=== PATIENT | female | born 1940 | race Caucasian/White ===

== ENCOUNTER 2020-05-21 11:34 | Emergency (ER) | payer MEDICARE ==
[~2020-05-21] VITALS: Ht 160 cm; Wt 95.0 kg
[2020-05-21] MEDS ORDERED: HYDROmorphone 1 MG/ML, 1ML INJ IV ONE (12:00)
[2020-05-21] MEDS ORDERED: DEXAMETHASONE 4 MG/ML, 1ML IVPush ONE (12:00)
[2020-05-21] MEDS ORDERED: KETOROLAC 30 MG/1 ML IM/IV ONE (12:00)
[2020-05-21] MEDS ORDERED: ONDANSETRON 2MG/ML, 2ML IVPush ONE (12:00)
[2020-05-21] MEDS ORDERED: HYDROmorphone 1 MG/ML, 1ML INJ ONE (12:07)
[2020-05-21] MEDS ORDERED: KETOROLAC 30 MG/1 ML ONE (12:07)
[2020-05-21] MEDS ORDERED: ONDANSETRON 2MG/ML, 2ML ONE (12:11)
[2020-05-21] MEDS ORDERED: DEXAMETHASONE 4 MG/ML, 1ML ONE ×2 (12:11→12:21)
--- NOTE | 2020-05-21 12:22 | NUR ---
MEDICATED NOTED ON SEP FOR LEFT HIP PAIN FOR THE LAST SEVERAL DAYS. PAIN RADIATES DOWN LEG. DENIES TRAUMA BUT DID HAVE AN INJECTION LEFT HIP APPROX 10 DAYS AGO. ADDTIONALLY Rick Duncan HAS BE BEEN USING WALKER THE LAST FEW DAYS WHICH SHE DOES NOT NORMALLY DO BECAUSE OF THE PAIN
[2020-05-21 12:27] LABS: CHLORIDE 105 mmol/L (98-107)
[2020-05-21 12:30] LABS: BASOPHILS % (AUTO) 0 % (0-1); EOSINOPHILS % (AUTO) 0 % (1-7); LYMPHOCYTES % (AUTO) 10 % (22-44); MEAN CORPUSCULAR HEMOGLOBIN 32.5 pg (27.0-34.8); MEAN CORPUSCULAR HGB CONC 34.1 g/dL (32.4-35.8); MONOCYTES % (AUTO) 10 % (2-9); NEUTROPHILS % (AUTO) 80 % (42-75); PLATELET COUNT 209 x10^3/uL (130-400); RED BLOOD COUNT 4.07 x10^6/uL (3.82-5.3); RED CELL DISTRIBUTION WIDTH 13.8 % (9.6-15.2)
[2020-05-21 12:38] LABS: MD NO
[2020-05-21 12:55] LABS: ANION GAP 12 mmol/L (5-15); CALCIUM 8.8 mg/dL (8.5-10.1)
[2020-05-21 12:56] LABS: CREATININE 1.05 mg/dL (0.55-1.02)
--- NOTE | 2020-05-21 13:17 | NUR ---
BREAK RN: PT RESTING, REPOSITIONED FOR COMFORT, VERBALIZED NO OTHER NEEDS, STATES PAIN IS COMING BACK, REQUEST ADDITIONAL MEDS AT THIS TIME.
--- NOTE | 2020-05-21 14:50 | NUR ---
PT AMBULATED SHORT DISTANCE WITH SOME ASSISTANCE. HAS LEFT HIP PAIN BUT IT HAS IMPROVED SINCE MEDICATED.
[2020-05-21 14:51] VITALS: BP 105/52
[2020-05-21] MEDS ORDERED: OXYcodone/APAP 5/325MG TABLET ONE (15:11)
[2020-05-21] MEDS ORDERED: OXYcodone/APAP 5/325MG TABLET PO ONE (15:30)
== END 2020-05-21 15:20 | disposition home or self-care (01) ==
LOC: ED 13:58
DX: M54.42 Lumbago with sciatica, left side (principal); R43.9 Unspecified disturbances of smell and taste; I10 Essential (primary) hypertension; E11.9 Type 2 diabetes mellitus without complications; R26.2 Difficulty in walking, not elsewhere classified
CPT/HCPCS: 36415; 80048; 85025; 96374; 96375; 99284; J1100; J1170; J1885; J2405

== ENCOUNTER → 2020-10-24 | Outpatient (CLI) | payer MEDICARE | END | disposition home or self-care (01) | LOC: CFH 10:01 | PROVIDERS: ATTEND Physician Assistant | DX: M48.061 Spinal stenosis, lumbar region without neurogenic claudication (principal); M43.27 Fusion of spine, lumbosacral region; M25.78 Osteophyte, vertebrae | CPT/HCPCS: 72131 ==

== ENCOUNTER 2020-11-17 08:21 | Outpatient (CLI) | payer MEDICARE ==
[2020-11-17 08:41] LABS: BASOPHILS % (AUTO) 1 % (0-1); EOSINOPHILS % (AUTO) 4 % (1-7); LYMPHOCYTES % (AUTO) 34 % (22-44); MEAN CORPUSCULAR HEMOGLOBIN 31.7 pg (27.0-34.8); MEAN CORPUSCULAR HGB CONC 33.7 g/dL (32.4-35.8); MEAN PLATELET VOLUME 8.4 fL (7.4-10.4); MONOCYTES % (AUTO) 11 % (2-9); NEUTROPHILS % (AUTO) 50 % (42-75); PLATELET COUNT 214 x10^3/uL (130-400); RED BLOOD COUNT 4.15 x10^6/uL (3.82-5.3); RED CELL DISTRIBUTION WIDTH 12.9 % (9.6-15.2)
[2020-11-17 08:43] LABS: MD NO
[2020-11-17 08:50] LABS: ALANINE AMINOTRANSFERASE 28 U/L (12-78); ALBUMIN 3.6 g/dL (3.4-5.0); ANION GAP 5 mmol/L (5-15); CHLORIDE 107 mmol/L (98-107)
[2020-11-17 09:17] LABS: ALKALINE PHOSPHATASE 101 U/L (45-117); BILIRUBIN,TOTAL 0.6 mg/dL (0.2-1.0); CREATININE 1.11 mg/dL (0.55-1.02); FOLATE LEVEL 17.2 ng/mL (3.1-17.5)
[2020-12-30] MEDS ORDERED: METF1000 PO (09:19)
[2020-12-30] MEDS ORDERED: ATOR20TA37 PO (09:19)
[2020-12-30] MEDS ORDERED: water pill PO (09:19)
[2020-12-30] MEDS ORDERED: LOSA25TA25 PO (09:19)
== END 2020-11-17 23:59 | disposition home or self-care (01) ==
LOC: LAB 08:21
PROVIDERS: ATTEND Student in an Organized Health Care Education/Training Program
DX: I10 Essential (primary) hypertension (principal); R41.3 Other amnesia; E11.9 Type 2 diabetes mellitus without complications
CPT/HCPCS: 36415; 80053; 82306; 82607; 82746; 83036; 84443; 85025

== ENCOUNTER → 2020-12-30 | Outpatient (CLI) | payer MEDICARE ==
[~2020-12-30] MED LIST: ATOR20TA37 PO; LOSA25TA25 PO; METF1000 PO; water pill PO
[2020-12-30 09:44] LABS: MICROSCOPIC AUTO
[2020-12-30 09:53] LABS: INTERNATIONAL NORMALIZED RATIO 0.98 (0.93-1.1); PROTHROMBIN TIME 10.5 Seconds (9.6-11.5)
[2020-12-30 09:54] LABS: BASOPHILS % (AUTO) 1 % (0-1); EOSINOPHILS % (AUTO) 3 % (1-7); LYMPHOCYTES % (AUTO) 31 % (22-44); MEAN CORPUSCULAR HEMOGLOBIN 32.4 pg (27.0-34.8); MEAN CORPUSCULAR HGB CONC 34.2 g/dL (32.4-35.8); MEAN PLATELET VOLUME 9.1 fL (7.4-10.4); MONOCYTES % (AUTO) 11 % (2-9); NEUTROPHILS % (AUTO) 55 % (42-75); PLATELET COUNT 217 x10^3/uL (130-400); RED BLOOD COUNT 4.34 x10^6/uL (3.82-5.3); RED CELL DISTRIBUTION WIDTH 13.4 % (9.6-15.2)
[2020-12-30 09:55] LABS: MD NO
[2020-12-30 10:12] LABS: ALBUMIN 3.9 g/dL (3.4-5.0); ANION GAP 3 mmol/L (5-15); CHLORIDE 109 mmol/L (98-107)
[2020-12-30 10:15] LABS: ALANINE AMINOTRANSFERASE 20 U/L (12-78); ALKALINE PHOSPHATASE 79 U/L (45-117); BILIRUBIN,TOTAL 0.9 mg/dL (0.2-1.0); CREATININE 0.99 mg/dL (0.55-1.02); TOTAL PROTEIN 7.4 g/dL (6.4-8.2)
== END | disposition home or self-care (01) ==
LOC: STAR 08:32
PROVIDERS: ATTEND Neurological Surgery
DX: Z01.812 Encounter for preprocedural laboratory examination (principal); Z20.822 Contact with and (suspected) exposure to COVID-19; Z01.811 Encounter for preprocedural respiratory examination; Z01.818 Encounter for other preprocedural examination; Z01.810 Encounter for preprocedural cardiovascular examination; R79.1 Abnormal coagulation profile; R94.31 Abnormal electrocardiogram [ECG] [EKG]; R82.90 Unspecified abnormal findings in urine; M48.061 Spinal stenosis, lumbar region without neurogenic claudication; M54.16 Radiculopathy, lumbar region; I51.7 Cardiomegaly; R00.1 Bradycardia, unspecified
CPT/HCPCS: 36415; 71046; 80053; 81001; 85025; 85610; 85730; 87086; 93005; U0003; U0005

== ENCOUNTER 2021-01-05 07:47 | Observation (INO) | payer MEDICARE ==
[~2021-01-05] VITALS: Ht 157.5 cm; Wt 83.4 kg
[2021-01-05] MEDS ORDERED: HYDR25TA6 PO (08:17)
[2021-01-05] MEDS ORDERED: GABA600T7 PO (08:18)
[2021-01-05] MEDS ORDERED: CHLORHEXIDINE 15 ML UDC PO ONE (08:30)
[2021-01-05] MEDS ORDERED: LACTATED RINGERS 1,000 ML IV SCH (08:30)
[2021-01-05] MEDS ORDERED: FENTANYL PF 250 MCG/5ML ONE (09:45)
[2021-01-05] MEDS ORDERED: THROMBIN (RECOMBINANT) 5,000 UNIT VIAL TP ONE (09:48)
[2021-01-05] MEDS ORDERED: BUPIVACAINE/PF 0.25% ONE (09:48)
[2021-01-05] MEDS ORDERED: EPINEPHRINE 1 MG/ML, 1ML ONE (09:48)
[2021-01-05] MEDS ORDERED: BACITRACIN 50,000 UNIT ONE (09:48)
[2021-01-05] MEDS ORDERED: PROPOFOL 10 MG/ML, 20ML ONE ×2 (10:31→12:38)
[2021-01-05] MEDS ORDERED: PROPOFOL 100 ML ONE (10:31)
[2021-01-05] MEDS ORDERED: LABETALOL 5MG/ML, 20ML IV PRN (11:00)
[2021-01-05] MEDS ORDERED: ACETAMINOPHEN 325 MG TABLET PO PRN (11:00)
[2021-01-05] MEDS ORDERED: hydrALAzine 20 MG/ML, 1ML IV PRN (11:00)
[2021-01-05] MEDS ORDERED: HYDROmorphone 1 MG/ML, 1ML INJ IVPush PRN (11:00)
[2021-01-05] MEDS ORDERED: PROMETHAZINE 25 MG/ML, 1ML IVPush PRN (11:00)
[2021-01-05] MEDS ORDERED: METHOCARBAMOL 1,000 MG in DEXTROSE 5% 100 ML IV PRN (11:00)
[2021-01-05] MEDS ORDERED: PROMETHAZINE 25 MG SUPP PR PRN (11:00)
[2021-01-05] MEDS ORDERED: LORazepam 2 MG/ML, 1ML IVPush PRN (11:00)
[2021-01-05] MEDS ORDERED: OXYcodone 5 MG/5 ML ORAL.SOL UDC PO PRN (11:00)
[2021-01-05] MEDS ORDERED: ONDANSETRON 2MG/ML, 2ML IVPush PRN (11:00)
[2021-01-05] MEDS ORDERED: FENTANYL PF 100 MCG/2ML ONE (12:30)
[2021-01-05] MEDS ORDERED: ACETAMINOPHEN 650 MG/20.3 ML UDC ONE (12:31)
[2021-01-05] MEDS ORDERED: OXYcodone 5 MG/5 ML ORAL.SOL UDC ONE (12:31)
[2021-01-05] MEDS: FENTANYL PF 100 MCG/2ML IV PRN ×2 (12:34→13:09)
[2021-01-05] MEDS ORDERED: NEOSTIGMINE 1 MG/ML, 10ML ONE (12:38)
[2021-01-05] MEDS ORDERED: ROCURONIUM 10MG/ML,5ML ONE (12:38)
[2021-01-05] MEDS ORDERED: SUCCINYLCHOLINE 20 MG/ML, 10ML ONE (12:38)
[2021-01-05] MEDS ORDERED: GLYCOPYRROLATE 0.2MG/1ML, 5ML ONE (12:38)
[2021-01-05] MEDS ORDERED: DEXAMETHASONE 4 MG/ML, 1ML ONE (12:38)
[2021-01-05] MEDS ORDERED: CEFAZOLIN 1,000 MG ONE (12:38)
[2021-01-05] MEDS ORDERED: ONDANSETRON 2MG/ML, 2ML ONE (12:38)
[2021-01-05] MEDS ORDERED: KETOROLAC 30 MG/1 ML ONE (12:56)
[2021-01-05 14:34] VITALS: BP 96/64
[2021-01-05] MEDS ORDERED: morphine SULFATE 10 MG/ML, 1ML IV PRN (15:00)
[2021-01-05] MEDS ORDERED: MAGNESIUM HYDROXIDE 8%, 30ML UDC PO PRN (15:00)
[2021-01-05] MEDS ORDERED: PROMETHAZINE 25 MG/ML, 1ML IM PRN (15:00)
[2021-01-05] MEDS ORDERED: DIPHENHYDRAMINE 50 MG/ML, 1ML IM PRN (15:00)
[2021-01-05] MEDS ORDERED: HYDROcodone/APAP 5/325 TABLET PO PRN (15:00)
[2021-01-05] MEDS ORDERED: LORazepam 1MG TABLET PO PRN (15:00)
[2021-01-05] MEDS ORDERED: BISACODYL 10 MG SUPP PR PRN (15:00)
[2021-01-05] MEDS ORDERED: DIPHENHYDRAMINE 50 MG/ML, 1ML IVPush PRN (15:00)
[2021-01-05] MEDS ORDERED: DIPHENHYDRAMINE 25 MG CAPSULE PO PRN (15:00)
[2021-01-05] MEDS ORDERED: ONDANSETRON 2MG/ML, 2ML IV PRN (15:00)
[2021-01-05] MEDS ORDERED: morphine SULFATE 10 MG/ML, 1ML IVPush PRN (15:30)
[2021-01-05] MEDS: D5%-0.9% NACL+KCL 20MEQ 1,000 ML IV SCH (16:00)
[2021-01-05] MEDS: OXYcodone IR 5MG TABLET PO PRN (17:00)
[2021-01-05] MEDS: metFORMIN 500 MG TABLET PO SCH (17:00)
[2021-01-05] MEDS: INSULIN REGULAR 100 UNITS/ML, 3ML VIAL SQ-INSULIN SCH ×2 (17:01→20:37)
[2021-01-05] MEDS: CEFAZOLIN PMX 1GM/50ML 50 ML IVPB SCH (17:04)
[2021-01-05 19:59] VITALS: BP 105/70
[2021-01-05] MEDS: ATORVASTATIN 20 MG TABLET PO SCH (20:36)
[2021-01-05] MEDS: GABAPENTIN 400 MG CAPSULE PO SCH (20:36)
[2021-01-05] MEDS: TIZANIDINE 4MG TABLET PO PRN (22:06)
[2021-01-05 23:31] VITALS: BP 106/64
[2021-01-06] MEDS: OXYcodone IR 5MG TABLET PO PRN ×4 (00:56→21:24)
[2021-01-06] MEDS: D5%-0.9% NACL+KCL 20MEQ 1,000 ML IV SCH ×4 (01:00→19:09)
[2021-01-06] MEDS: CEFAZOLIN PMX 1GM/50ML 50 ML IVPB SCH (01:58)
[2021-01-06 03:55] VITALS: BP 106/55
[2021-01-06 05:23] LABS: BASOPHILS % (AUTO) 0 % (0-1); EOSINOPHILS % (AUTO) 0 % (1-7); LYMPHOCYTES % (AUTO) 19 % (22-44); MEAN CORPUSCULAR HEMOGLOBIN 32.6 pg (27.0-34.8); MEAN CORPUSCULAR HGB CONC 34.2 g/dL (32.4-35.8); MEAN PLATELET VOLUME 9.4 fL (7.4-10.4); MONOCYTES % (AUTO) 9 % (2-9); NEUTROPHILS % (AUTO) 72 % (42-75); PLATELET COUNT 169 x10^3/uL (130-400); RED CELL DISTRIBUTION WIDTH 13.5 % (9.6-15.2)
[2021-01-06 05:33] LABS: ANION GAP 7 mmol/L (5-15); CALCIUM 8.3 mg/dL (8.5-10.1); CHLORIDE 108 mmol/L (98-107); CREATININE 0.88 mg/dL (0.55-1.02)
[2021-01-06] MEDS: INSULIN REGULAR 100 UNITS/ML, 3ML VIAL SQ-INSULIN SCH ×4 (07:00→21:00)
[2021-01-06 07:10] VITALS: BP 94/60
[2021-01-06] MEDS: SENNA/DOCUSATE TABLET PO SCH (08:21)
[2021-01-06] MEDS: metFORMIN 500 MG TABLET PO SCH ×2 (08:21→16:43)
[2021-01-06] MEDS: GABAPENTIN 400 MG CAPSULE PO SCH ×2 (08:21→21:05)
[2021-01-06] MEDS: HYDROCHLOROTHIAZIDE 25 MG TABLET PO SCH (08:21)
[2021-01-06] MEDS: LOSARTAN 25MG TABLET PO SCH (08:32)
[2021-01-06] MEDS: ENOXAPARIN 40 MG/0.4 ML SQ SCH (12:11)
[2021-01-06 12:45] VITALS: BP 100/65
[2021-01-06 19:01] VITALS: BP 124/77
[2021-01-06] MEDS: ATORVASTATIN 20 MG TABLET PO SCH (21:05)
[2021-01-07 03:55] VITALS: BP 102/56
[2021-01-07 05:29] LABS: ANION GAP 5 mmol/L (5-15); CALCIUM 8.8 mg/dL (8.5-10.1); CHLORIDE 105 mmol/L (98-107); CREATININE 0.86 mg/dL (0.55-1.02)
[2021-01-07 05:35] LABS: BASOPHILS % (AUTO) 1 % (0-1); EOSINOPHILS % (AUTO) 3 % (1-7); LYMPHOCYTES % (AUTO) 30 % (22-44); MEAN CORPUSCULAR HEMOGLOBIN 32.1 pg (27.0-34.8); MEAN CORPUSCULAR HGB CONC 33.7 g/dL (32.4-35.8); MEAN PLATELET VOLUME 9.3 fL (7.4-10.4); MONOCYTES % (AUTO) 9 % (2-9); NEUTROPHILS % (AUTO) 56 % (42-75); PLATELET COUNT 178 x10^3/uL (130-400); RED BLOOD COUNT 3.37 x10^6/uL (3.82-5.3); RED CELL DISTRIBUTION WIDTH 13.5 % (9.6-15.2)
[2021-01-07] MEDS: INSULIN REGULAR 100 UNITS/ML, 3ML VIAL SQ-INSULIN SCH ×2 (06:14→11:00)
[2021-01-07 07:32] VITALS: BP 121/55
[2021-01-07] MEDS: metFORMIN 500 MG TABLET PO SCH (08:00)
[2021-01-07] MEDS: HYDROCHLOROTHIAZIDE 25 MG TABLET PO SCH (08:00)
[2021-01-07] MEDS: GABAPENTIN 400 MG CAPSULE PO SCH (08:00)
[2021-01-07] MEDS: SENNA/DOCUSATE TABLET PO SCH (08:00)
[2021-01-07] MEDS: TIZANIDINE 4MG TABLET PO PRN (08:00)
[2021-01-07] MEDS: LOSARTAN 25MG TABLET PO SCH (08:00)
[2021-01-07] MEDS ORDERED: HYDR-2214 PO (08:38)
[2021-01-07] MEDS ORDERED: TIZA4TAB2 PO (08:38)
[2021-01-07] MEDS: ENOXAPARIN 40 MG/0.4 ML SQ SCH (11:51)
== END 2021-01-07 14:05 | disposition home or self-care (01) ==
LOC: OUT 07:47 → 4NE 14:31 → OUT 15:44 → DCLOUNGE 01-07 13:55
PROVIDERS: ADMIT Neurological Surgery; ATTEND Neurological Surgery
DX: M43.16 Spondylolisthesis, lumbar region (principal); M48.062 Spinal stenosis, lumbar region with neurogenic claudication; M47.26 Other spondylosis with radiculopathy, lumbar region; M25.78 Osteophyte, vertebrae; M48.56XA Collapsed vertebra, not elsewhere classified, lumbar region, initial encounter for fracture; E11.9 Type 2 diabetes mellitus without complications; I10 Essential (primary) hypertension; Z79.899 Other long term (current) drug therapy
CPT/HCPCS: 36415; 63012; 63056; 63057; 72100; 80048; 82962; 85025; 95938; 95941; 96361; 96365; 96372; 96376; 97161; 97166; C1729; G0378; J0330; J0690; J1100; J1650; J1815; J2405; J2704; J2710; J2800; J3010; J3480; J7120; J0171